=== PATIENT | male | born 1985 | race Asian ===

== ENCOUNTER → 2020-07-20 | Outpatient (CLI) | payer OTHER | END | disposition home or self-care (01) | LOC: LABMN 15:36 | DX: Z20.828 Contact with and (suspected) exposure to other viral communicable diseases (principal) | CPT/HCPCS: U0003 ==

== ENCOUNTER → 2020-10-13 | Outpatient (CLI) | payer OTHER | END | disposition home or self-care (01) | LOC: RADMN 10:25 | PROVIDERS: ATTEND Internal Medicine | DX: R76.11 Nonspecific reaction to tuberculin skin test without active tuberculosis (principal) | CPT/HCPCS: 71045-TC ==